=== PATIENT | male | born 2000 | race Caucasian/White ===

== ENCOUNTER 2023-05-24 17:25 | Emergency (ER) | payer OTHER ==
[2023-05-24 17:56] VITALS: BP 113/72; PULSE 83; RESP 15; TEMP 98.3; BMI 34.9
[2023-05-24] MEDS ORDERED: diazePAM 5 MG TABLET PO ONE (19:47)
[2023-05-24] MEDS ORDERED: ACETAMINOPHEN 500 MG TABLET (FP) PO ONE (19:47)
[2023-05-24] MEDS ORDERED: KETOROLAC TROMETHAMINE 30 MG/1 ML VIAL IM ONE (19:47)
[2023-05-24] MEDS ORDERED: LIDOCAINE 5% TOPICAL PATCH TP ONE (19:47)
[2023-05-24] MEDS ORDERED: diazePAM 5 MG TABLET ONE (19:49)
[2023-05-24] MEDS ORDERED: LIDOCAINE 5% TOPICAL PATCH ONE (19:49)
[2023-05-24] MEDS ORDERED: KETOROLAC TROMETHAMINE 30 MG/1 ML VIAL ONE (19:49)
[2023-05-24] MEDS ORDERED: ACETAMINOPHEN 500 MG TABLET (FP) ONE (19:49)
[2023-05-25] MEDS ORDERED: LIDOCAINE PATCH REMOVAL MC SCH (08:00)
== END 2023-05-24 20:47 | disposition home or self-care (01) ==
LOC: JERFT 17:25
PROC: 3E0233Z Introduction of Anti-inflammatory into Muscle, Percutaneous Approach (ICD-10-PCS; principal; 2023-05-24)
DX: M54.50 Low back pain, unspecified (principal); V47.5XXA Car driver injured in collision with fixed or stationary object in traffic accident, initial encounter; Y93.I9 Activity, other involving external motion; Y92.410 Unspecified street and highway as the place of occurrence of the external cause
CPT/HCPCS: 99284-25

== ENCOUNTER 2024-08-14 09:41 | Emergency (ER) | payer OTHER ==
[2024-08-14 09:46] VITALS: BP 135/67; PULSE 83; RESP 19; TEMP 97.7; BMI 29.6
[2024-08-14] MEDS ORDERED: LIDOCAINE 4% PATCH TP ONE (10:22)
[2024-08-14] MEDS ORDERED: KETOROLAC TROMETHAMINE 30 MG/1 ML VIAL ONE (10:23)
[2024-08-14] MEDS ORDERED: METHOCARBAMOL 500 MG TABLET ONE (10:23)
[2024-08-14] MEDS: LIDOCAINE 5% TOPICAL PATCH TP ONE (10:33)
[2024-08-14] MEDS: LIDOCAINE 4% PATCH TP ONE (10:33)
[2024-08-14] MEDS: KETOROLAC TROMETHAMINE 30 MG/1 ML VIAL IM ONE (10:33)
[2024-08-14] MEDS: METHOCARBAMOL 500 MG TABLET PO ONE (10:33)
== END 2024-08-14 11:39 | disposition home or self-care (01) ==
LOC: JERFT 09:41
PROC: 3E0233Z Introduction of Anti-inflammatory into Muscle, Percutaneous Approach (ICD-10-PCS; principal; 2024-08-14)
DX: M54.50 Low back pain, unspecified (principal); V44.5XXA Car driver injured in collision with heavy transport vehicle or bus in traffic accident, initial encounter; Y92.410 Unspecified street and highway as the place of occurrence of the external cause
CPT/HCPCS: 72100-TC-FY; 99284-25